=== PATIENT | female | born 1960 ===

== ENCOUNTER 2020-06-10 15:06 | Inpatient (IN) | payer OTHER ==
[~2020-06-10] VITALS: Ht 157.5 cm; Wt 80.8 kg
[2020-06-10] MEDS ORDERED: LIDOCAINE PATCH TD (15:57)
[2020-06-10] MEDS ORDERED: METF-960 PO (15:57)
[2020-06-10] MEDS ORDERED: INSU100V42 SQ (15:57)
[2020-06-10] MEDS ORDERED: AMLO-257 PO (15:57)
[2020-06-10] MEDS ORDERED: BISA-151 PO (15:57)
[2020-06-10] MEDS ORDERED: PRAM0.258 PO (15:57)
[2020-06-10] MEDS ORDERED: CYCL10 PO (15:57)
[2020-06-10] MEDS ORDERED: CHOL200016 PO (15:57)
[2020-06-10] MEDS ORDERED: DOCU-350 PO (15:57)
[2020-06-10] MEDS ORDERED: EPOE4000 SQ (15:57)
[2020-06-10] MEDS ORDERED: ATOR40TA28 PO (15:57)
[2020-06-10] MEDS ORDERED: ALLO-45 PO (15:57)
[2020-06-10] MEDS ORDERED: LOSA50TA37 PO (15:57)
[2020-06-10] MEDS ORDERED: OXYC5 PO (15:57)
[2020-06-10] MEDS ORDERED: CARV25 PO (15:57)
[2020-06-10] MEDS ORDERED: CLOP-31 PO (15:57)
[2020-06-10] MEDS ORDERED: ESCI20TA87 PO (15:57)
[2020-06-10] MEDS ORDERED: LORA-999 PO (15:57)
[2020-06-10] MEDS ORDERED: FERR-89 PO (15:57)
[2020-06-10] MEDS ORDERED: BISA10SU61 PR (15:57)
[2020-06-10] MEDS ORDERED: ASPI-728 PO (15:57)
[2020-06-10] MEDS ORDERED: PANT-31 PO (15:57)
[2020-06-10] MEDS ORDERED: IPRA3AMP24 IH (15:57)
[2020-06-10] MEDS ORDERED: EMPA10TA PO (15:57)
[2020-06-10] MEDS ORDERED: 0.9% SODIUM CHLORIDE 10 ML SYRINGE IVP PRN (16:00)
[2020-06-10] MEDS ORDERED: LIDO700A15 TD (16:01)
[2020-06-10 16:11] LABS: BASOPHILS % (AUTO) 0.6 % (0.0-2.0); EOSINOPHILS % (AUTO) 0.3 % (1.0-6.0); HEMATOCRIT 23.9 % (41-53); HEMOGLOBIN 7.5 g/dL (13.5-17.5); LYMPHOCYTES # (AUTO) 0.8 K/uL (1.0-4.8); LYMPHOCYTES % (AUTO) 7.7 % (22.0-44.0); MEAN CORPUSCULAR HEMOGLOBIN 25.6 pg (26.0-34.0); MEAN CORPUSCULAR HGB CONC 31.5 G/dL (31.0-37.0); MEAN CORPUSCULAR VOLUME 81 fL (80-100); MONOCYTES # (AUTO) 0.9 K/uL (0.1-1.0); MONOCYTES % (AUTO) 9.1 % (2.0-9.0); NEUTROPHILS # (AUTO) 8.2 K/uL (1.8-7.7); NEUTROPHILS % (AUTO) 82.3 % (40.0-70.0); PLATELET COUNT (AUTO) 430 K/uL (150-450); RED BLOOD CELL COUNT(AUTO) 2.95 MIL/uL (4.50-5.90); RED CELL DISTRIBUTION WIDTH 18.8 % (11.5-14.5)
[2020-06-10 16:22] LABS: CALCIUM, TOTAL 8.7 mg/dL (8.8-10.5); CREATININE 1.21 mg/dL (0.60-1.30); POTASSIUM 4.1 mmol/L (3.5-5.1)
[2020-06-10 16:43] LABS: INR 1.3 (0.9-1.1); PROTHROMBIN TIME 13.3 SEC (9.4-11.6)
[2020-06-10 16:47] LABS: ALBUMIN 2.3 g/dL (3.4-5.0); BILIRUBIN,TOTAL 0.5 mg/dL (0.1-1.0); TOTAL PROTEIN, SERUM 6.7 g/dL (6.4-8.2)
[2020-06-10] MEDS ORDERED: OxyCODONE HCL 5 MG IR TABLET PO ONE (17:30)
[2020-06-10] MEDS ORDERED: ACETAMINOPHEN 325 MG TABLET PO PRN (18:30)
[2020-06-10] MEDS ORDERED: ONDANSETRON HCL 4 MG/2 ML VIAL IVP PRN ×2 (18:30→19:00)
[2020-06-10] MEDS ORDERED: FUROSEMIDE 40 MG/4 ML VIAL IVP ONE (18:30)
[2020-06-10] MEDS ORDERED: BISACODYL 10 MG RECTAL RECTAL SUPPOSITORY PR PRN ×2 (18:45→19:00)
[2020-06-10] MEDS ORDERED: DEXTROSE 50%-WATER 25 GM/50 ML SYRINGE IVP PRN (18:45)
[2020-06-10] MEDS ORDERED: MAGNESIUM HYDROXIDE SUSPENSION 30 ML UDCUP PO PRN (19:00)
[2020-06-10] MEDS ORDERED: ALLO-44 PO (19:21)
[2020-06-10 19:33] LABS: APPEARANCE,URINE CLOUDY (CLEAR); BILIRUBIN,URINE NEGATIVE (NEGATIVE); GLUCOSE, URINE (UA) 500 mg/dL (NEGATIVE); KETONES,URINE NEGATIVE (NEGATIVE); LEUKOCYTE ESTERASE ,URINE MODERATE (NEGATIVE); NITRATE,URINE NEGATIVE (NEGATIVE); OCCULT BLOOD,URINE NEGATIVE (NEGATIVE); PH,URINE 5.5 (5.0-8.0); PROTEIN,URINE NEGATIVE (NEGATIVE); UROBILINOGEN,URINE 0.2 mg/dL (<=1.0)
[2020-06-10 19:34] LABS: GLUCOSE,POINT OF CARE 187 MG/DL (70-110)
[2020-06-10 19:39] LABS: BACTERIA,URINE Few /HPF (None Seen); YEAST,URINE Many /HPF (None Seen)
[2020-06-10 19:40] LABS: RBC,URINE None Seen /HPF (0-2)
[2020-06-10 19:41] LABS: SQUAMOUS EPITHELIAL CELL,UR Few /LPF (None Seen)
[2020-06-10 19:59] LABS: GLUCOSE,POINT OF CARE 137 MG/DL (70-110)
[2020-06-10 20:02] LABS: GLUCOSE,POINT OF CARE 131 MG/DL (70-110)
[2020-06-10] MEDS ORDERED: -LIDODERM PATCH NOTE- MISC SCH (21:00)
[2020-06-10] MEDS: INSULIN GLARGINE,HUM.REC.ANLOG 100 UNITS/ML SQ SCH (21:00)
[2020-06-10] MEDS: -LIDODERM PATCH NOTE- MISC SCH (21:00)
[2020-06-10] MEDS: FUROSEMIDE 20 MG/2 ML VIAL IVP SCH (21:00)
[2020-06-10 22:02] VITALS: BP 144/55
[2020-06-10] MEDS: AMPICILLIN SODIUM 2 GM/NS 100 ML IV SCH (22:07)
[2020-06-10 23:21] VITALS: BP 122/77
[2020-06-10] MEDS: CYCLOBENZAPRINE HCL 10 MG TABLET PO SCH (23:51)
[2020-06-10] MEDS: LOSARTAN POTASSIUM 50 MG TABLET PO SCH (23:57)
[2020-06-10] MEDS: CARVEDILOL 25 MG TABLET PO SCH (23:57)
[2020-06-11] MEDS: OxyCODONE HCL 5 MG IR TABLET PO PRN ×2 (01:32→11:25)
[2020-06-11] MEDS: AMPICILLIN SODIUM 2 GM/NS 100 ML IV SCH ×6 (01:32→21:07)
[2020-06-11 05:49] VITALS: BP 129/62
[2020-06-11 06:28] LABS: BASOPHILS % (AUTO) 0.3 % (0.0-2.0); EOSINOPHILS % (AUTO) 0.5 % (1.0-6.0); LYMPHOCYTES % (AUTO) 11.4 % (22.0-44.0); MEAN CORPUSCULAR HEMOGLOBIN 25.7 pg (26.0-34.0); MEAN CORPUSCULAR HGB CONC 31.8 G/dL (31.0-37.0); MEAN CORPUSCULAR VOLUME 81 fL (80-100); MONOCYTES # (AUTO) 0.8 K/uL (0.1-1.0); MONOCYTES % (AUTO) 9.3 % (2.0-9.0); NEUTROPHILS # (AUTO) 6.9 K/uL (1.8-7.7); NEUTROPHILS % (AUTO) 78.5 % (40.0-70.0); PLATELET COUNT (AUTO) 385 K/uL (150-450); RED BLOOD CELL COUNT(AUTO) 2.72 MIL/uL (4.00-5.20); RED CELL DISTRIBUTION WIDTH 19.3 % (11.5-14.5)
[2020-06-11 06:52] LABS: CALCIUM, TOTAL 8.6 mg/dL (8.8-10.5); CHOL/HDL RATIO 1.8 (3.9-5.7); CREATININE 1.36 mg/dL (0.60-1.30); POTASSIUM 3.9 mmol/L (3.5-5.1); URIC ACID 4.3 mg/dL (2.6-7.2)
[2020-06-11 07:35] LABS: FREE T4 (FREE THYROXINE) 1.17 ng/dL (0.76-1.46); THYROID STIMULATING HORMONE 2.77 uIU/mL (0.36-3.74)
[2020-06-11 07:38] LABS: GLUCOMETER DEV NAME(LOC) 5S.1; GLUCOSE,POINT OF CARE 121 MG/DL (70-110)
[2020-06-11 07:40] VITALS: BP 132/51
[2020-06-11 08:38] LABS: HEMOGLOBIN A1C 6.4 % (3.8-5.6)
[2020-06-11] MEDS ORDERED: EMPAGLIFLOZIN 10 MG PO SCH (09:00)
[2020-06-11] MEDS: LOSARTAN POTASSIUM 50 MG TABLET PO SCH ×2 (09:31→21:00)
[2020-06-11] MEDS: ALLOPURINOL 100 MG TABLET PO SCH (09:32)
[2020-06-11] MEDS: DOCUSATE SODIUM 250 MG CAPSULE PO SCH (09:32)
[2020-06-11] MEDS: FUROSEMIDE 20 MG/2 ML VIAL IVP SCH ×2 (09:32→21:00)
[2020-06-11] MEDS: FERROUS SULFATE 325 MG EC TABLET PO SCH (09:33)
[2020-06-11] MEDS: CHOLECALCIFEROL (VIT D3) 2,000 UNITS [50 MCG] TABLET PO SCH (09:33)
[2020-06-11] MEDS: ASPIRIN 81 MG CHEWABLE TABLET PO SCH (09:33)
[2020-06-11] MEDS: CARVEDILOL 25 MG TABLET PO SCH ×2 (09:33→21:00)
[2020-06-11] MEDS: MetFORMIN HCL 500 MG TABLET PO SCH ×2 (09:33→17:19)
[2020-06-11] MEDS: ATORVASTATIN CALCIUM 40 MG TABLET PO SCH (09:34)
[2020-06-11] MEDS: PANTOPRAZOLE SODIUM 40 MG DR TABLET PO SCH (09:34)
[2020-06-11] MEDS: AmLODIPine BESYLATE 5 MG TABLET PO SCH (09:34)
[2020-06-11] MEDS: CLOPIDOGREL BISULFATE 75 MG TABLET PO SCH (09:34)
[2020-06-11] MEDS: LIDOCAINE 5% TRANSDERMAL PATCH TD SCH (09:42)
[2020-06-11] MEDS: CYCLOBENZAPRINE HCL 10 MG TABLET PO SCH ×3 (09:43→23:22)
[2020-06-11] MEDS: PRAMIPEXOLE DI-HCL 0.25 MG TABLET PO SCH (09:43)
[2020-06-11] MEDS: ESCITALOPRAM OXALATE 20 MG TABLET PO SCH (09:47)
[2020-06-11 10:47] VITALS: BP 145/71
[2020-06-11] MEDS: EPOETIN ALFA 10,000 UNITS/ML VIAL SQ SCH (12:08)
[2020-06-11 12:50] LABS: GLUCOMETER DEV NAME(LOC) 5S.1; GLUCOSE,POINT OF CARE 104 MG/DL (70-110)
[2020-06-11 16:03] VITALS: BP 124/62
[2020-06-11 19:20] VITALS: BP 157/87
[2020-06-11] MEDS: -LIDODERM PATCH NOTE- MISC SCH (21:00)
[2020-06-11] MEDS: INSULIN GLARGINE,HUM.REC.ANLOG 100 UNITS/ML SQ SCH (21:00)
[2020-06-12 01:10] VITALS: BP 156/69
[2020-06-12] MEDS: AMPICILLIN SODIUM 2 GM/NS 100 ML IV SCH ×6 (01:39→21:08)
[2020-06-12 01:46] LABS: GLUCOMETER DEV NAME(LOC) 5S.1; GLUCOSE,POINT OF CARE 116 MG/DL (70-110)
[2020-06-12 01:46] LABS: GLUCOMETER DEV NAME(LOC) 5N.1; GLUCOSE,POINT OF CARE 92 MG/DL (70-110)
[2020-06-12] MEDS: OxyCODONE HCL 5 MG IR TABLET PO PRN ×3 (03:15→20:46)
[2020-06-12 04:18] VITALS: BP 140/63
[2020-06-12 06:01] LABS: BASOPHILS % (AUTO) 0.8 % (0.0-2.0); EOSINOPHILS % (AUTO) 0.5 % (1.0-6.0); HEMATOCRIT 22.8 % (36-46); HEMOGLOBIN 7.4 g/dL (12.0-16.0); LYMPHOCYTES # (AUTO) 1.2 K/uL (1.0-4.8); MEAN CORPUSCULAR HEMOGLOBIN 26.2 pg (26.0-34.0); MEAN CORPUSCULAR HGB CONC 32.3 G/dL (31.0-37.0); MEAN CORPUSCULAR VOLUME 81 fL (80-100); MONOCYTES # (AUTO) 0.8 K/uL (0.1-1.0); MONOCYTES % (AUTO) 10.3 % (2.0-9.0); NEUTROPHILS # (AUTO) 5.9 K/uL (1.8-7.7); NEUTROPHILS % (AUTO) 73.4 % (40.0-70.0); PLATELET COUNT (AUTO) 392 K/uL (150-450); RED BLOOD CELL COUNT(AUTO) 2.81 MIL/uL (4.00-5.20); RED CELL DISTRIBUTION WIDTH 19.1 % (11.5-14.5)
[2020-06-12 07:02] LABS: CALCIUM, TOTAL 8.5 mg/dL (8.8-10.5); CREATININE 1.26 mg/dL (0.60-1.30); POTASSIUM 3.2 mmol/L (3.5-5.1)
[2020-06-12 07:45] VITALS: BP 147/60
[2020-06-12 07:58] LABS: GLUCOMETER DEV NAME(LOC) 5N.1; GLUCOSE,POINT OF CARE 92 MG/DL (70-110)
[2020-06-12] MEDS: CARVEDILOL 25 MG TABLET PO SCH ×2 (08:55→20:46)
[2020-06-12] MEDS: LOSARTAN POTASSIUM 50 MG TABLET PO SCH ×2 (08:55→20:47)
[2020-06-12] MEDS: CYCLOBENZAPRINE HCL 10 MG TABLET PO SCH ×3 (08:55→23:58)
[2020-06-12] MEDS: PRAMIPEXOLE DI-HCL 0.25 MG TABLET PO SCH (08:55)
[2020-06-12] MEDS: ASPIRIN 81 MG CHEWABLE TABLET PO SCH (08:55)
[2020-06-12] MEDS: ATORVASTATIN CALCIUM 40 MG TABLET PO SCH (08:56)
[2020-06-12] MEDS: CLOPIDOGREL BISULFATE 75 MG TABLET PO SCH (08:56)
[2020-06-12] MEDS: ALLOPURINOL 100 MG TABLET PO SCH (08:56)
[2020-06-12] MEDS: MetFORMIN HCL 500 MG TABLET PO SCH ×2 (08:56→18:18)
[2020-06-12] MEDS: AmLODIPine BESYLATE 5 MG TABLET PO SCH (08:56)
[2020-06-12] MEDS: PANTOPRAZOLE SODIUM 40 MG DR TABLET PO SCH (08:56)
[2020-06-12] MEDS: DOCUSATE SODIUM 250 MG CAPSULE PO SCH (08:56)
[2020-06-12] MEDS: CHOLECALCIFEROL (VIT D3) 2,000 UNITS [50 MCG] TABLET PO SCH (08:56)
[2020-06-12] MEDS: FUROSEMIDE 20 MG/2 ML VIAL IVP SCH ×2 (08:57→20:45)
[2020-06-12] MEDS: LIDOCAINE 5% TRANSDERMAL PATCH TD SCH (08:57)
[2020-06-12] MEDS: FERROUS SULFATE 325 MG EC TABLET PO SCH (09:02)
[2020-06-12] MEDS: ESCITALOPRAM OXALATE 20 MG TABLET PO SCH (09:03)
[2020-06-12] MEDS ORDERED: CloNIDine HCL 0.1 MG TABLET PO PRN (09:15)
[2020-06-12] MEDS ORDERED: POTASSIUM CHLORIDE 20 MEQ ER TABLET PO ONE (09:30)
[2020-06-12 11:50] VITALS: BP 140/74
[2020-06-12 16:00] VITALS: BP 111/49
[2020-06-12 19:33] VITALS: BP 125/67
[2020-06-12] MEDS: -LIDODERM PATCH NOTE- MISC SCH (20:47)
[2020-06-12] MEDS: INSULIN GLARGINE,HUM.REC.ANLOG 100 UNITS/ML SQ SCH (21:00)
[2020-06-12 22:08] LABS: GLUCOMETER DEV NAME(LOC) 5S.2A; GLUCOSE,POINT OF CARE 132 MG/DL (70-110)
[2020-06-13 00:51] VITALS: BP 128/54
[2020-06-13] MEDS: AMPICILLIN SODIUM 2 GM/NS 100 ML IV SCH ×6 (02:13→21:36)
[2020-06-13] MEDS: OxyCODONE HCL 5 MG IR TABLET PO PRN (03:44)
[2020-06-13 04:30] VITALS: BP 138/64
[2020-06-13 06:26] LABS: CALCIUM, TOTAL 8.2 mg/dL (8.8-10.5); CREATININE 1.29 mg/dL (0.60-1.30); POTASSIUM 3.4 mmol/L (3.5-5.1)
[2020-06-13 06:27] LABS: BASOPHILS % (AUTO) 0.4 % (0.0-2.0); EOSINOPHILS % (AUTO) 0.9 % (1.0-6.0); HEMOGLOBIN 7.5 g/dL (12.0-16.0); LYMPHOCYTES # (AUTO) 1.1 K/uL (1.0-4.8); LYMPHOCYTES % (AUTO) 11.2 % (22.0-44.0); MEAN CORPUSCULAR HEMOGLOBIN 26.6 pg (26.0-34.0); MEAN CORPUSCULAR HGB CONC 32.8 G/dL (31.0-37.0); MEAN CORPUSCULAR VOLUME 81 fL (80-100); MONOCYTES # (AUTO) 0.9 K/uL (0.1-1.0); MONOCYTES % (AUTO) 9.8 % (2.0-9.0); NEUTROPHILS # (AUTO) 7.5 K/uL (1.8-7.7); NEUTROPHILS % (AUTO) 77.7 % (40.0-70.0); PLATELET COUNT (AUTO) 376 K/uL (150-450); RED BLOOD CELL COUNT(AUTO) 2.83 MIL/uL (4.00-5.20); RED CELL DISTRIBUTION WIDTH 19.6 % (11.5-14.5)
[2020-06-13 07:34] VITALS: BP 145/58
[2020-06-13 08:41] LABS: GLUCOMETER DEV NAME(LOC) 5N.3; GLUCOSE,POINT OF CARE 112 MG/DL (70-110)
[2020-06-13] MEDS: CYCLOBENZAPRINE HCL 10 MG TABLET PO SCH ×2 (08:43→15:23)
[2020-06-13] MEDS: FERROUS SULFATE 325 MG EC TABLET PO SCH (08:43)
[2020-06-13] MEDS: DOCUSATE SODIUM 250 MG CAPSULE PO SCH (08:44)
[2020-06-13] MEDS: MetFORMIN HCL 500 MG TABLET PO SCH ×2 (08:44→17:49)
[2020-06-13] MEDS: ASPIRIN 81 MG CHEWABLE TABLET PO SCH (08:44)
[2020-06-13] MEDS: FUROSEMIDE 20 MG/2 ML VIAL IVP SCH ×2 (08:44→21:36)
[2020-06-13] MEDS: LOSARTAN POTASSIUM 50 MG TABLET PO SCH ×2 (08:45→21:36)
[2020-06-13] MEDS: CARVEDILOL 25 MG TABLET PO SCH ×2 (08:45→21:36)
[2020-06-13] MEDS: CLOPIDOGREL BISULFATE 75 MG TABLET PO SCH (08:46)
[2020-06-13] MEDS: ATORVASTATIN CALCIUM 40 MG TABLET PO SCH (08:46)
[2020-06-13] MEDS: ESCITALOPRAM OXALATE 20 MG TABLET PO SCH (08:46)
[2020-06-13] MEDS: POTASSIUM CHLORIDE 20 MEQ ER TABLET PO SCH (08:46)
[2020-06-13] MEDS: AmLODIPine BESYLATE 10 MG TABLET PO SCH (08:46)
[2020-06-13] MEDS: PRAMIPEXOLE DI-HCL 0.25 MG TABLET PO SCH (08:46)
[2020-06-13] MEDS: LIDOCAINE 5% TRANSDERMAL PATCH TD SCH (08:47)
[2020-06-13] MEDS: EPOETIN ALFA 10,000 UNITS/ML VIAL SQ SCH (08:47)
[2020-06-13] MEDS: CHOLECALCIFEROL (VIT D3) 2,000 UNITS [50 MCG] TABLET PO SCH (08:47)
[2020-06-13] MEDS: PANTOPRAZOLE SODIUM 40 MG DR TABLET PO SCH (08:47)
[2020-06-13] MEDS: ALLOPURINOL 100 MG TABLET PO SCH (08:47)
[2020-06-13 11:15] VITALS: BP 125/52
[2020-06-13 11:59] LABS: GLUCOMETER DEV NAME(LOC) 5S.2A; GLUCOSE,POINT OF CARE 130 MG/DL (70-110)
[2020-06-13] MEDS: INSULIN LISPRO 100 UNITS/ML SQ PRN ×2 (12:26→21:38)
[2020-06-13 12:47] LABS: GLUCOMETER DEV NAME(LOC) 5N.1; GLUCOSE,POINT OF CARE 124 MG/DL (70-110)
[2020-06-13 13:33] LABS: GLUCOMETER DEV NAME(LOC) 5N.3; GLUCOSE,POINT OF CARE 172 MG/DL (70-110)
[2020-06-13] MEDS ORDERED: BusPIRone HCL 5 MG TABLET PO SCH (14:45)
[2020-06-13] MEDS: BusPIRone HCL 5 MG TABLET PO SCH (14:45)
[2020-06-13] MEDS ORDERED: SODIUM CHLORIDE 0.9% 250 ML IV ONE (15:31)
[2020-06-13 15:38] VITALS: BP 107/57
[2020-06-13 20:10] VITALS: BP 126/57
[2020-06-13] MEDS: -LIDODERM PATCH NOTE- MISC SCH (21:37)
[2020-06-13] MEDS: INSULIN GLARGINE,HUM.REC.ANLOG 100 UNITS/ML SQ SCH (21:38)
[2020-06-14] MEDS: CYCLOBENZAPRINE HCL 10 MG TABLET PO SCH ×4 (00:15→23:41)
[2020-06-14] MEDS: BusPIRone HCL 5 MG TABLET PO SCH ×3 (00:16→20:35)
[2020-06-14 00:20] VITALS: BP 125/55
[2020-06-14] MEDS: AMPICILLIN SODIUM 2 GM/NS 100 ML IV SCH ×6 (02:10→22:16)
[2020-06-14] MEDS: LORazepam 0.5 MG TABLET PO PRN ×3 (02:20→18:04)
[2020-06-14 03:55] VITALS: BP 104/54
[2020-06-14 08:00] VITALS: BP 137/72
[2020-06-14] MEDS: POTASSIUM CHLORIDE 20 MEQ ER TABLET PO SCH (09:31)
[2020-06-14] MEDS: PANTOPRAZOLE SODIUM 40 MG DR TABLET PO SCH (09:32)
[2020-06-14] MEDS: MetFORMIN HCL 500 MG TABLET PO SCH ×2 (09:32→18:03)
[2020-06-14] MEDS: CLOPIDOGREL BISULFATE 75 MG TABLET PO SCH (09:32)
[2020-06-14] MEDS: LEVOFLOXACIN 500 MG TABLET PO SCH (09:32)
[2020-06-14] MEDS: ATORVASTATIN CALCIUM 40 MG TABLET PO SCH (09:32)
[2020-06-14] MEDS: DOCUSATE SODIUM 250 MG CAPSULE PO SCH (09:32)
[2020-06-14] MEDS: ASPIRIN 81 MG CHEWABLE TABLET PO SCH (09:32)
[2020-06-14] MEDS: AmLODIPine BESYLATE 10 MG TABLET PO SCH (09:32)
[2020-06-14] MEDS: FERROUS SULFATE 325 MG EC TABLET PO SCH (09:32)
[2020-06-14] MEDS: LOSARTAN POTASSIUM 50 MG TABLET PO SCH ×2 (09:32→20:35)
[2020-06-14] MEDS: CHOLECALCIFEROL (VIT D3) 2,000 UNITS [50 MCG] TABLET PO SCH (09:33)
[2020-06-14] MEDS: CARVEDILOL 25 MG TABLET PO SCH ×2 (09:33→20:35)
[2020-06-14] MEDS: LIDOCAINE 5% TRANSDERMAL PATCH TD SCH (09:33)
[2020-06-14] MEDS: ALLOPURINOL 100 MG TABLET PO SCH (09:33)
[2020-06-14] MEDS: FUROSEMIDE 20 MG/2 ML VIAL IVP SCH ×2 (09:34→20:35)
[2020-06-14] MEDS: PRAMIPEXOLE DI-HCL 0.25 MG TABLET PO SCH (09:35)
[2020-06-14] MEDS: ESCITALOPRAM OXALATE 20 MG TABLET PO SCH (09:35)
[2020-06-14 11:15] VITALS: BP 139/67
[2020-06-14 12:59] LABS: GLUCOMETER DEV NAME(LOC) 5S.2A; GLUCOSE,POINT OF CARE 115 MG/DL (70-110)
[2020-06-14 17:05] VITALS: BP 136/69
[2020-06-14 18:06] LABS: GLUCOMETER DEV NAME(LOC) 5N.3; GLUCOSE,POINT OF CARE 158 MG/DL (70-110)
[2020-06-14 18:06] LABS: GLUCOMETER DEV NAME(LOC) 5N.3; GLUCOSE,POINT OF CARE 133 MG/DL (70-110)
[2020-06-14 18:06] LABS: GLUCOMETER DEV NAME(LOC) 5N.3; GLUCOSE,POINT OF CARE 149 MG/DL (70-110)
[2020-06-14 18:06] LABS: GLUCOMETER DEV NAME(LOC) 5N.3; GLUCOSE,POINT OF CARE 124 MG/DL (70-110)
[2020-06-14] MEDS: INSULIN LISPRO 100 UNITS/ML SQ PRN (18:10)
[2020-06-14 19:31] VITALS: BP 119/64
[2020-06-14] MEDS: INSULIN GLARGINE,HUM.REC.ANLOG 100 UNITS/ML SQ SCH (20:57)
[2020-06-14] MEDS: -LIDODERM PATCH NOTE- MISC SCH (21:02)
[2020-06-15 00:01] VITALS: BP 116/61
[2020-06-15 00:08] LABS: GLUCOMETER DEV NAME(LOC) 5S.2A; GLUCOSE,POINT OF CARE 159 MG/DL (70-110)
[2020-06-15 00:09] LABS: GLUCOMETER DEV NAME(LOC) 5N.3; GLUCOSE,POINT OF CARE 119 MG/DL (70-110)
[2020-06-15] MEDS: AMPICILLIN SODIUM 2 GM/NS 100 ML IV SCH ×6 (03:15→22:19)
[2020-06-15 04:29] VITALS: BP 141/69
[2020-06-15] MEDS: INSULIN LISPRO 100 UNITS/ML SQ PRN ×2 (06:05→11:56)
[2020-06-15 06:20] LABS: GLUCOMETER DEV NAME(LOC) 5N.3; GLUCOSE,POINT OF CARE 157 MG/DL (70-110)
[2020-06-15 08:31] VITALS: BP 147/75
[2020-06-15] MEDS ORDERED: IPRATROPIUM BROMIDE 0.5 MG/2.5 ML NEB SOLUTION NEB ONE (08:42)
[2020-06-15] MEDS ORDERED: ALBUTEROL SULFATE 2.5 MG/0.5 ML NEB SOLUTION NEB ONE (08:42)
[2020-06-15] MEDS: FERROUS SULFATE 325 MG EC TABLET PO SCH (09:31)
[2020-06-15] MEDS: CYCLOBENZAPRINE HCL 10 MG TABLET PO SCH ×2 (09:32→15:59)
[2020-06-15] MEDS: MetFORMIN HCL 500 MG TABLET PO SCH ×2 (09:32→18:19)
[2020-06-15] MEDS: FUROSEMIDE 20 MG/2 ML VIAL IVP SCH (09:33)
[2020-06-15] MEDS: ASPIRIN 81 MG CHEWABLE TABLET PO SCH (09:33)
[2020-06-15] MEDS: CLOPIDOGREL BISULFATE 75 MG TABLET PO SCH (09:34)
[2020-06-15] MEDS: AmLODIPine BESYLATE 10 MG TABLET PO SCH (09:34)
[2020-06-15] MEDS: LOSARTAN POTASSIUM 50 MG TABLET PO SCH ×2 (09:34→20:57)
[2020-06-15] MEDS: ATORVASTATIN CALCIUM 40 MG TABLET PO SCH (09:38)
[2020-06-15] MEDS: ESCITALOPRAM OXALATE 20 MG TABLET PO SCH (09:38)
[2020-06-15] MEDS: ALLOPURINOL 100 MG TABLET PO SCH (09:38)
[2020-06-15] MEDS: CARVEDILOL 25 MG TABLET PO SCH ×2 (09:38→20:57)
[2020-06-15] MEDS: LEVOFLOXACIN 500 MG TABLET PO SCH (09:38)
[2020-06-15] MEDS: BusPIRone HCL 5 MG TABLET PO SCH ×2 (09:38→20:56)
[2020-06-15] MEDS: PRAMIPEXOLE DI-HCL 0.25 MG TABLET PO SCH (09:42)
[2020-06-15] MEDS: POTASSIUM CHLORIDE 20 MEQ ER TABLET PO SCH (09:42)
[2020-06-15] MEDS: CHOLECALCIFEROL (VIT D3) 2,000 UNITS [50 MCG] TABLET PO SCH (09:43)
[2020-06-15] MEDS: DOCUSATE SODIUM 250 MG CAPSULE PO SCH (09:43)
[2020-06-15] MEDS: PANTOPRAZOLE SODIUM 40 MG DR TABLET PO SCH (09:43)
[2020-06-15] MEDS: EPOETIN ALFA 10,000 UNITS/ML VIAL SQ SCH (09:44)
[2020-06-15] MEDS: LIDOCAINE 5% TRANSDERMAL PATCH TD SCH (09:45)
[2020-06-15 10:50] VITALS: BP 124/77
[2020-06-15] MEDS: IPRATROPIUM BROMIDE 0.5 MG/2.5 ML NEB SOLUTION NEB PRN ×2 (10:50→20:22)
[2020-06-15] MEDS ORDERED: ALBUTEROL SULFATE 2.5 MG/0.5 ML NEB SOLUTION NEB SCH ×2 (11:00)
[2020-06-15] MEDS ORDERED: IPRATROPIUM BROMIDE 0.5 MG/2.5 ML NEB SOLUTION NEB SCH (11:00)
[2020-06-15] MEDS ORDERED: FUROSEMIDE 40 MG/4 ML VIAL IVP ONE (11:15)
[2020-06-15] MEDS: FUROSEMIDE 40 MG/4 ML VIAL IVP SCH ×2 (12:21→20:56)
[2020-06-15] MEDS: OxyCODONE HCL 5 MG IR TABLET PO PRN (12:27)
[2020-06-15 15:17] VITALS: BP 129/69
[2020-06-15 20:14] VITALS: BP 147/73
[2020-06-15] MEDS: ALBUTEROL SULFATE 2.5 MG/0.5 ML NEB SOLUTION NEB PRN (20:22)
[2020-06-15 20:37] LABS: GLUCOMETER DEV NAME(LOC) 5N.3; GLUCOSE,POINT OF CARE 113 MG/DL (70-110)
[2020-06-15] MEDS: INSULIN GLARGINE,HUM.REC.ANLOG 100 UNITS/ML SQ SCH (20:58)
[2020-06-15] MEDS: -LIDODERM PATCH NOTE- MISC SCH (21:16)
[2020-06-16] VITALS (7 sets, daily range): BP systolic 120–145; BP diastolic 66–77
[2020-06-16] MEDS: CYCLOBENZAPRINE HCL 10 MG TABLET PO SCH ×3 (00:31→15:05)
[2020-06-16] MEDS: AMPICILLIN SODIUM 2 GM/NS 100 ML IV SCH ×6 (02:25→22:50)
[2020-06-16] MEDS ORDERED: SODIUM CHLORIDE 0.9% 250 ML IV ONE (05:48)
[2020-06-16] MEDS: CLOPIDOGREL BISULFATE 75 MG TABLET PO SCH (09:04)
[2020-06-16] MEDS: LOSARTAN POTASSIUM 50 MG TABLET PO SCH ×2 (09:04→20:39)
[2020-06-16] MEDS: ATORVASTATIN CALCIUM 40 MG TABLET PO SCH (09:04)
[2020-06-16] MEDS: DOCUSATE SODIUM 250 MG CAPSULE PO SCH (09:04)
[2020-06-16] MEDS: AmLODIPine BESYLATE 10 MG TABLET PO SCH (09:04)
[2020-06-16] MEDS: PANTOPRAZOLE SODIUM 40 MG DR TABLET PO SCH (09:04)
[2020-06-16] MEDS: FERROUS SULFATE 325 MG EC TABLET PO SCH (09:04)
[2020-06-16] MEDS: POTASSIUM CHLORIDE 20 MEQ ER TABLET PO SCH (09:04)
[2020-06-16] MEDS: MetFORMIN HCL 500 MG TABLET PO SCH ×2 (09:05→18:28)
[2020-06-16] MEDS: ASPIRIN 81 MG CHEWABLE TABLET PO SCH (09:05)
[2020-06-16] MEDS: PRAMIPEXOLE DI-HCL 0.25 MG TABLET PO SCH (09:06)
[2020-06-16] MEDS: BusPIRone HCL 5 MG TABLET PO SCH ×2 (09:08→20:39)
[2020-06-16] MEDS: CARVEDILOL 25 MG TABLET PO SCH ×2 (09:08→20:39)
[2020-06-16] MEDS: ESCITALOPRAM OXALATE 20 MG TABLET PO SCH (09:09)
[2020-06-16] MEDS: CHOLECALCIFEROL (VIT D3) 2,000 UNITS [50 MCG] TABLET PO SCH (09:10)
[2020-06-16] MEDS: ALLOPURINOL 100 MG TABLET PO SCH (09:11)
[2020-06-16] MEDS: LIDOCAINE 5% TRANSDERMAL PATCH TD SCH (09:11)
[2020-06-16] MEDS: FUROSEMIDE 40 MG/4 ML VIAL IVP SCH ×2 (09:13→20:37)
[2020-06-16] MEDS: LEVOFLOXACIN 500 MG TABLET PO SCH (09:15)
[2020-06-16] MEDS: BACLOFEN 10 MG TABLET PO PRN (11:15)
[2020-06-16] MEDS: INSULIN LISPRO 100 UNITS/ML SQ PRN (11:17)
[2020-06-16 12:01] LABS: GLUCOMETER DEV NAME(LOC) 5S.2A; GLUCOSE,POINT OF CARE 143 MG/DL (70-110)
[2020-06-16 12:01] LABS: GLUCOMETER DEV NAME(LOC) 5S.2A; GLUCOSE,POINT OF CARE 134 MG/DL (70-110)
[2020-06-16 12:01] LABS: GLUCOMETER DEV NAME(LOC) 5S.2A; GLUCOSE,POINT OF CARE 155 MG/DL (70-110)
[2020-06-16] MEDS ORDERED: POTASSIUM CHLORIDE 20 MEQ ER TABLET PO ONE (18:00)
[2020-06-16] MEDS: -LIDODERM PATCH NOTE- MISC SCH (20:38)
[2020-06-16] MEDS: INSULIN GLARGINE,HUM.REC.ANLOG 100 UNITS/ML SQ SCH (20:43)
[2020-06-17] MEDS: CYCLOBENZAPRINE HCL 10 MG TABLET PO SCH ×3 (01:07→17:23)
[2020-06-17] MEDS: LORazepam 0.5 MG TABLET PO PRN (01:07)
[2020-06-17] MEDS: AMPICILLIN SODIUM 2 GM/NS 100 ML IV SCH ×6 (01:08→21:12)
[2020-06-17 04:37] VITALS: BP 143/65
[2020-06-17 05:57] LABS: GLUCOMETER DEV NAME(LOC) 5N.3; GLUCOSE,POINT OF CARE 124 MG/DL (70-110)
[2020-06-17 05:57] LABS: GLUCOMETER DEV NAME(LOC) 5N.3; GLUCOSE,POINT OF CARE 105 MG/DL (70-110)
[2020-06-17 05:57] LABS: GLUCOMETER DEV NAME(LOC) 5N.3; GLUCOSE,POINT OF CARE 135 MG/DL (70-110)
[2020-06-17 06:56] LABS: BASOPHILS % (AUTO) 0.8 % (0.0-2.0); EOSINOPHILS % (AUTO) 1.4 % (1.0-6.0); HEMOGLOBIN 8.1 g/dL (12.0-16.0); LYMPHOCYTES # (AUTO) 0.6 K/uL (1.0-4.8); LYMPHOCYTES % (AUTO) 6.4 % (22.0-44.0); MEAN CORPUSCULAR HEMOGLOBIN 26.2 pg (26.0-34.0); MEAN CORPUSCULAR HGB CONC 32.4 G/dL (31.0-37.0); MEAN CORPUSCULAR VOLUME 81 fL (80-100); MONOCYTES % (AUTO) 9.8 % (2.0-9.0); NEUTROPHILS # (AUTO) 8.3 K/uL (1.8-7.7); NEUTROPHILS % (AUTO) 81.6 % (40.0-70.0); PLATELET COUNT (AUTO) 404 K/uL (150-450); RED BLOOD CELL COUNT(AUTO) 3.09 MIL/uL (4.00-5.20); RED CELL DISTRIBUTION WIDTH 20.6 % (11.5-14.5)
[2020-06-17 07:03] LABS: CALCIUM, TOTAL 8.7 mg/dL (8.8-10.5); CREATININE 1.31 mg/dL (0.60-1.30); POTASSIUM 3.6 mmol/L (3.5-5.1)
[2020-06-17 07:52] VITALS: BP 139/70
[2020-06-17 08:08] LABS: GLUCOMETER DEV NAME(LOC) 5S.2A; GLUCOSE,POINT OF CARE 112 MG/DL (70-110)
[2020-06-17] MEDS: LEVOFLOXACIN 500 MG TABLET PO SCH (08:35)
[2020-06-17] MEDS: FERROUS SULFATE 325 MG EC TABLET PO SCH (08:35)
[2020-06-17] MEDS: ASPIRIN 81 MG CHEWABLE TABLET PO SCH (08:35)
[2020-06-17] MEDS: ATORVASTATIN CALCIUM 40 MG TABLET PO SCH (08:35)
[2020-06-17] MEDS: MetFORMIN HCL 500 MG TABLET PO SCH ×2 (08:35→17:23)
[2020-06-17] MEDS: CLOPIDOGREL BISULFATE 75 MG TABLET PO SCH (08:36)
[2020-06-17] MEDS: LOSARTAN POTASSIUM 50 MG TABLET PO SCH ×2 (08:36→21:06)
[2020-06-17] MEDS: PANTOPRAZOLE SODIUM 40 MG DR TABLET PO SCH (08:36)
[2020-06-17] MEDS: POTASSIUM CHLORIDE 20 MEQ ER TABLET PO SCH (08:36)
[2020-06-17] MEDS: FUROSEMIDE 40 MG/4 ML VIAL IVP SCH ×2 (08:36→21:06)
[2020-06-17] MEDS: PRAMIPEXOLE DI-HCL 0.25 MG TABLET PO SCH (08:36)
[2020-06-17] MEDS: LIDOCAINE 5% TRANSDERMAL PATCH TD SCH (08:37)
[2020-06-17] MEDS: ESCITALOPRAM OXALATE 20 MG TABLET PO SCH (08:37)
[2020-06-17] MEDS: ALLOPURINOL 100 MG TABLET PO SCH (08:37)
[2020-06-17] MEDS: DOCUSATE SODIUM 250 MG CAPSULE PO SCH (08:37)
[2020-06-17] MEDS: CHOLECALCIFEROL (VIT D3) 2,000 UNITS [50 MCG] TABLET PO SCH (08:37)
[2020-06-17] MEDS: BusPIRone HCL 5 MG TABLET PO SCH ×2 (08:37→21:06)
[2020-06-17] MEDS: CARVEDILOL 25 MG TABLET PO SCH ×2 (11:12→21:06)
[2020-06-17] MEDS: EPOETIN ALFA 10,000 UNITS/ML VIAL SQ SCH (11:12)
[2020-06-17] MEDS: AmLODIPine BESYLATE 10 MG TABLET PO SCH (11:12)
[2020-06-17] MEDS ORDERED: CefTRIAXone 1 GM/DEXTROSE 50 ML IV SCH (13:00)
[2020-06-17 15:05] VITALS: BP 145/53
[2020-06-17 20:01] VITALS: BP 139/58
[2020-06-17 20:24] LABS: GLUCOMETER DEV NAME(LOC) 5N.3; GLUCOSE,POINT OF CARE 118 MG/DL (70-110)
[2020-06-17] MEDS: INSULIN GLARGINE,HUM.REC.ANLOG 100 UNITS/ML SQ SCH (21:00)
[2020-06-17] MEDS: -LIDODERM PATCH NOTE- MISC SCH (21:06)
[2020-06-17 21:36] LABS: GLUCOMETER DEV NAME(LOC) 5S.1; GLUCOSE,POINT OF CARE 109 MG/DL (70-110)
[2020-06-17] MEDS: MICONAZOLE NITRATE 2% 142 GM CREAM [BAZA] TP SCH (21:36)
[2020-06-17 23:06] VITALS: BP 107/52
[2020-06-18] MEDS: CYCLOBENZAPRINE HCL 10 MG TABLET PO SCH ×4 (00:34→23:45)
[2020-06-18] MEDS: AMPICILLIN SODIUM 2 GM/NS 100 ML IV SCH ×6 (01:20→22:24)
[2020-06-18 04:05] VITALS: BP 108/65
[2020-06-18 06:02] LABS: BASOPHILS % (AUTO) 0.6 % (0.0-2.0); EOSINOPHILS % (AUTO) 1.8 % (1.0-6.0); HEMATOCRIT 24.3 % (36-46); HEMOGLOBIN 7.9 g/dL (12.0-16.0); LYMPHOCYTES # (AUTO) 0.7 K/uL (1.0-4.8); LYMPHOCYTES % (AUTO) 7.2 % (22.0-44.0); MEAN CORPUSCULAR HGB CONC 32.4 G/dL (31.0-37.0); MEAN CORPUSCULAR VOLUME 80 fL (80-100); MONOCYTES % (AUTO) 10.8 % (2.0-9.0); NEUTROPHILS # (AUTO) 7.6 K/uL (1.8-7.7); NEUTROPHILS % (AUTO) 79.6 % (40.0-70.0); PLATELET COUNT (AUTO) 391 K/uL (150-450); RED BLOOD CELL COUNT(AUTO) 3.03 MIL/uL (4.00-5.20); RED CELL DISTRIBUTION WIDTH 20.2 % (11.5-14.5)
[2020-06-18 07:33] VITALS: BP 140/75
[2020-06-18] MEDS: FERROUS SULFATE 325 MG EC TABLET PO SCH ×2 (08:00→12:26)
[2020-06-18] MEDS: MetFORMIN HCL 500 MG TABLET PO SCH ×2 (08:00→18:07)
[2020-06-18 08:08] LABS: GLUCOMETER DEV NAME(LOC) 5S.2A; GLUCOSE,POINT OF CARE 99 MG/DL (70-110)
[2020-06-18] MEDS: FUROSEMIDE 40 MG/4 ML VIAL IVP SCH ×2 (08:28→20:35)
[2020-06-18] MEDS: LIDOCAINE 5% TRANSDERMAL PATCH TD SCH (08:28)
[2020-06-18] MEDS ORDERED: AZITHROMYCIN 500 MG TABLET PO SCH (09:00)
[2020-06-18] MEDS: CLOPIDOGREL BISULFATE 75 MG TABLET PO SCH (09:00)
[2020-06-18] MEDS: DOCUSATE SODIUM 250 MG CAPSULE PO SCH (09:00)
[2020-06-18 11:11] VITALS: BP 123/63
[2020-06-18] MEDS: AmLODIPine BESYLATE 10 MG TABLET PO SCH (12:26)
[2020-06-18] MEDS: ASPIRIN 81 MG CHEWABLE TABLET PO SCH (12:26)
[2020-06-18] MEDS: ATORVASTATIN CALCIUM 40 MG TABLET PO SCH (12:26)
[2020-06-18] MEDS: POTASSIUM CHLORIDE 20 MEQ ER TABLET PO SCH (12:26)
[2020-06-18] MEDS: LOSARTAN POTASSIUM 50 MG TABLET PO SCH ×2 (12:26→20:35)
[2020-06-18] MEDS: CHOLECALCIFEROL (VIT D3) 2,000 UNITS [50 MCG] TABLET PO SCH (12:27)
[2020-06-18] MEDS: PANTOPRAZOLE SODIUM 40 MG DR TABLET PO SCH (12:27)
[2020-06-18] MEDS: ESCITALOPRAM OXALATE 20 MG TABLET PO SCH (12:27)
[2020-06-18] MEDS: PRAMIPEXOLE DI-HCL 0.25 MG TABLET PO SCH (12:27)
[2020-06-18] MEDS: CARVEDILOL 25 MG TABLET PO SCH ×2 (12:27→20:35)
[2020-06-18] MEDS: ALLOPURINOL 100 MG TABLET PO SCH (12:27)
[2020-06-18] MEDS: BusPIRone HCL 5 MG TABLET PO SCH ×2 (12:27→20:35)
[2020-06-18 12:28] LABS: GLUCOMETER DEV NAME(LOC) 5N.3; GLUCOSE,POINT OF CARE 136 MG/DL (70-110)
[2020-06-18] MEDS: MICONAZOLE NITRATE 2% 142 GM CREAM [BAZA] TP SCH ×2 (12:28→20:43)
[2020-06-18 12:57] LABS: SPECIMENTYPE,BODY FLUID THORACENTESIS
[2020-06-18 14:00] LABS: APPEARANCE,SPUN,BODY FLUID CLEAR (CLEAR); APPEARANCE,UNSPUN,BODY FLUID HAZY (CLEAR); COLOR,BODY FLUID YELLOW (LT YELLOW); TOTAL VOLUME,BODY FLUID 850 mL; WBC, BODY FLUID 21 /cu. mm.
[2020-06-18 14:05] LABS: BASOPHILS,BODY FLUID 0 %; EOSINOPHILS,BF (ANAL) 0 %; LYMPHOCYTES,BODY FLUID 95 %; MONOCYTES,BODY FLUID 0 %; NEUTROPHILS,BODY FLUID 5 %
[2020-06-18] MEDS: LEVOFLOXACIN 500 MG TABLET PO SCH (14:28)
[2020-06-18 15:14] VITALS: BP 129/54
[2020-06-18 16:58] LABS: GLUCOMETER DEV NAME(LOC) 5S.1; GLUCOSE,POINT OF CARE 127 MG/DL (70-110)
[2020-06-18 17:52] LABS: GLUCOMETER DEV NAME(LOC) 5N.3; GLUCOSE,POINT OF CARE 141 MG/DL (70-110)
[2020-06-18 19:21] VITALS: BP 121/62
[2020-06-18] MEDS: INSULIN GLARGINE,HUM.REC.ANLOG 100 UNITS/ML SQ SCH (20:35)
[2020-06-18] MEDS: -LIDODERM PATCH NOTE- MISC SCH (20:37)
[2020-06-18 23:06] VITALS: BP 115/56
[2020-06-19] MEDS: AMPICILLIN SODIUM 2 GM/NS 100 ML IV SCH ×6 (02:15→21:48)
[2020-06-19 03:40] VITALS: BP 128/69
[2020-06-19 06:57] LABS: BASOPHILS % (AUTO) 0.6 % (0.0-2.0); EOSINOPHILS % (AUTO) 1.1 % (1.0-6.0); HEMATOCRIT 25.7 % (36-46); HEMOGLOBIN 8.2 g/dL (12.0-16.0); LYMPHOCYTES # (AUTO) 0.6 K/uL (1.0-4.8); LYMPHOCYTES % (AUTO) 5.6 % (22.0-44.0); MEAN CORPUSCULAR HEMOGLOBIN 25.6 pg (26.0-34.0); MEAN CORPUSCULAR VOLUME 80 fL (80-100); MONOCYTES # (AUTO) 1.1 K/uL (0.1-1.0); MONOCYTES % (AUTO) 9.4 % (2.0-9.0); NEUTROPHILS # (AUTO) 9.4 K/uL (1.8-7.7); NEUTROPHILS % (AUTO) 83.3 % (40.0-70.0); PLATELET COUNT (AUTO) 410 K/uL (150-450); RED BLOOD CELL COUNT(AUTO) 3.21 MIL/uL (4.00-5.20); RED CELL DISTRIBUTION WIDTH 20.4 % (11.5-14.5)
[2020-06-19 07:11] LABS: GLUCOMETER DEV NAME(LOC) 5N.3; GLUCOSE,POINT OF CARE 152 MG/DL (70-110)
[2020-06-19 07:11] LABS: GLUCOMETER DEV NAME(LOC) 5N.3; GLUCOSE,POINT OF CARE 162 MG/DL (70-110)
[2020-06-19 07:36] VITALS: BP 135/68
[2020-06-19] MEDS: LOSARTAN POTASSIUM 50 MG TABLET PO SCH ×2 (08:20→21:38)
[2020-06-19] MEDS: FERROUS SULFATE 325 MG EC TABLET PO SCH (08:20)
[2020-06-19] MEDS: CYCLOBENZAPRINE HCL 10 MG TABLET PO SCH ×2 (08:20→15:22)
[2020-06-19] MEDS: MULTIVITAMINS WITH MINERALS, THERAPEUTIC TABLET PO SCH (08:20)
[2020-06-19] MEDS: PRAMIPEXOLE DI-HCL 0.25 MG TABLET PO SCH (08:21)
[2020-06-19] MEDS: ASPIRIN 81 MG CHEWABLE TABLET PO SCH (08:21)
[2020-06-19] MEDS: CHOLECALCIFEROL (VIT D3) 2,000 UNITS [50 MCG] TABLET PO SCH (08:21)
[2020-06-19] MEDS: ALLOPURINOL 100 MG TABLET PO SCH (08:21)
[2020-06-19] MEDS: LEVOFLOXACIN 500 MG TABLET PO SCH (08:21)
[2020-06-19] MEDS: MetFORMIN HCL 500 MG TABLET PO SCH ×2 (08:22→17:27)
[2020-06-19] MEDS: FUROSEMIDE 40 MG/4 ML VIAL IVP SCH ×2 (08:22→21:37)
[2020-06-19] MEDS: CLOPIDOGREL BISULFATE 75 MG TABLET PO SCH (08:22)
[2020-06-19] MEDS: BusPIRone HCL 5 MG TABLET PO SCH ×2 (08:22→21:38)
[2020-06-19] MEDS: ATORVASTATIN CALCIUM 40 MG TABLET PO SCH (08:22)
[2020-06-19] MEDS: ESCITALOPRAM OXALATE 20 MG TABLET PO SCH (08:22)
[2020-06-19] MEDS: POTASSIUM CHLORIDE 20 MEQ ER TABLET PO SCH (08:22)
[2020-06-19] MEDS: PANTOPRAZOLE SODIUM 40 MG DR TABLET PO SCH (08:22)
[2020-06-19] MEDS: LIDOCAINE 5% TRANSDERMAL PATCH TD SCH (08:23)
[2020-06-19] MEDS: AmLODIPine BESYLATE 10 MG TABLET PO SCH (08:23)
[2020-06-19] MEDS: EPOETIN ALFA 10,000 UNITS/ML VIAL SQ SCH (08:23)
[2020-06-19] MEDS: MICONAZOLE NITRATE 2% 142 GM CREAM [BAZA] TP SCH ×2 (08:45→21:38)
[2020-06-19] MEDS: DOCUSATE SODIUM 250 MG CAPSULE PO SCH (08:45)
[2020-06-19] MEDS: CARVEDILOL 25 MG TABLET PO SCH ×2 (09:00→21:38)
[2020-06-19] MEDS: ALBUTEROL SULFATE 2.5 MG/0.5 ML NEB SOLUTION NEB PRN (09:03)
[2020-06-19] MEDS: IPRATROPIUM BROMIDE 0.5 MG/2.5 ML NEB SOLUTION NEB PRN (09:03)
[2020-06-19 10:41] VITALS: BP 113/79
[2020-06-19] MEDS ORDERED: FLUCONAZOLE 150 MG TABLET PO ONE (11:00)
[2020-06-19 11:23] LABS: GLUCOMETER DEV NAME(LOC) 5N.3; GLUCOSE,POINT OF CARE 181 MG/DL (70-110)
[2020-06-19] MEDS: INSULIN LISPRO 100 UNITS/ML SQ PRN (12:10)
[2020-06-19] MEDS: ALBUTEROL SULFATE 2.5 MG/0.5 ML NEB SOLUTION NEB SCH (14:46)
[2020-06-19] MEDS: IPRATROPIUM BROMIDE 0.5 MG/2.5 ML NEB SOLUTION NEB SCH (14:46)
[2020-06-19 15:27] VITALS: BP 129/74
[2020-06-19 17:35] LABS: GLUCOMETER DEV NAME(LOC) 5S.2A; GLUCOSE,POINT OF CARE 147 MG/DL (70-110)
[2020-06-19] MEDS: LORazepam 0.5 MG TABLET PO PRN (18:49)
[2020-06-19 19:54] VITALS: BP 136/69
[2020-06-19] MEDS: OxyCODONE HCL 5 MG IR TABLET PO PRN (21:38)
[2020-06-19] MEDS: -LIDODERM PATCH NOTE- MISC SCH (21:38)
[2020-06-19] MEDS: INSULIN GLARGINE,HUM.REC.ANLOG 100 UNITS/ML SQ SCH (21:46)
[2020-06-19 22:04] LABS: GLUCOMETER DEV NAME(LOC) 5N.3; GLUCOSE,POINT OF CARE 132 MG/DL (70-110)
[2020-06-20 00:14] VITALS: BP 116/65
[2020-06-20] MEDS: AMPICILLIN SODIUM 2 GM/NS 100 ML IV SCH ×7 (01:25→22:06)
[2020-06-20] MEDS: CYCLOBENZAPRINE HCL 10 MG TABLET PO SCH ×4 (01:25→23:31)
[2020-06-20] MEDS: IPRATROPIUM BROMIDE 0.5 MG/2.5 ML NEB SOLUTION NEB SCH ×5 (02:00→19:39)
[2020-06-20] MEDS: ALBUTEROL SULFATE 2.5 MG/0.5 ML NEB SOLUTION NEB SCH ×5 (02:00→19:39)
[2020-06-20 04:59] VITALS: BP 131/66
[2020-06-20] MEDS: ALBUTEROL SULFATE 2.5 MG/0.5 ML NEB SOLUTION NEB PRN (04:59)
[2020-06-20] MEDS: IPRATROPIUM BROMIDE 0.5 MG/2.5 ML NEB SOLUTION NEB PRN (04:59)
[2020-06-20] MEDS: BACLOFEN 10 MG TABLET PO PRN (05:18)
[2020-06-20 07:22] VITALS: BP 140/72
[2020-06-20] MEDS: PRAMIPEXOLE DI-HCL 0.25 MG TABLET PO SCH (08:32)
[2020-06-20] MEDS: AmLODIPine BESYLATE 10 MG TABLET PO SCH (08:32)
[2020-06-20] MEDS: ALLOPURINOL 100 MG TABLET PO SCH (08:33)
[2020-06-20] MEDS: ATORVASTATIN CALCIUM 40 MG TABLET PO SCH (08:33)
[2020-06-20] MEDS: FERROUS SULFATE 325 MG EC TABLET PO SCH (08:33)
[2020-06-20] MEDS: CARVEDILOL 25 MG TABLET PO SCH ×2 (08:33→20:28)
[2020-06-20] MEDS: CHOLECALCIFEROL (VIT D3) 2,000 UNITS [50 MCG] TABLET PO SCH (08:33)
[2020-06-20] MEDS: LORazepam 0.5 MG TABLET PO PRN ×2 (08:33→23:31)
[2020-06-20] MEDS: MetFORMIN HCL 500 MG TABLET PO SCH ×2 (08:33→18:06)
[2020-06-20] MEDS: CLOPIDOGREL BISULFATE 75 MG TABLET PO SCH (08:33)
[2020-06-20] MEDS: BusPIRone HCL 5 MG TABLET PO SCH ×2 (08:33→20:28)
[2020-06-20] MEDS: MULTIVITAMINS WITH MINERALS, THERAPEUTIC TABLET PO SCH (08:34)
[2020-06-20] MEDS: POTASSIUM CHLORIDE 20 MEQ ER TABLET PO SCH (08:34)
[2020-06-20] MEDS: LEVOFLOXACIN 500 MG TABLET PO SCH (08:34)
[2020-06-20] MEDS: DOCUSATE SODIUM 250 MG CAPSULE PO SCH (08:34)
[2020-06-20] MEDS: ASPIRIN 81 MG CHEWABLE TABLET PO SCH (08:34)
[2020-06-20] MEDS: PANTOPRAZOLE SODIUM 40 MG DR TABLET PO SCH (08:34)
[2020-06-20] MEDS: FUROSEMIDE 40 MG/4 ML VIAL IVP SCH ×2 (08:35→20:27)
[2020-06-20] MEDS: LOSARTAN POTASSIUM 50 MG TABLET PO SCH ×2 (08:42→20:27)
[2020-06-20] MEDS: ESCITALOPRAM OXALATE 20 MG TABLET PO SCH (08:42)
[2020-06-20] MEDS: LIDOCAINE 5% TRANSDERMAL PATCH TD SCH (08:43)
[2020-06-20] MEDS: OxyCODONE HCL 5 MG IR TABLET PO PRN (09:47)
[2020-06-20] MEDS: MICONAZOLE NITRATE 2% 142 GM CREAM [BAZA] TP SCH ×2 (09:48→21:07)
[2020-06-20 11:18] VITALS: BP 129/91
[2020-06-20 15:20] VITALS: BP 143/63
[2020-06-20 19:41] VITALS: BP 126/78
[2020-06-20] MEDS: INSULIN GLARGINE,HUM.REC.ANLOG 100 UNITS/ML SQ SCH (20:28)
[2020-06-20 20:47] LABS: GLUCOMETER DEV NAME(LOC) 5N.3; GLUCOSE,POINT OF CARE 114 MG/DL (70-110)
[2020-06-20] MEDS: -LIDODERM PATCH NOTE- MISC SCH (21:04)
[2020-06-21 00:09] VITALS: BP 130/87
[2020-06-21] MEDS: IPRATROPIUM BROMIDE 0.5 MG/2.5 ML NEB SOLUTION NEB SCH ×4 (02:38→20:08)
[2020-06-21] MEDS: ALBUTEROL SULFATE 2.5 MG/0.5 ML NEB SOLUTION NEB SCH ×4 (02:39→20:08)
[2020-06-21] MEDS: AMPICILLIN SODIUM 2 GM/NS 100 ML IV SCH ×6 (02:39→22:35)
[2020-06-21] MEDS ORDERED: SODIUM CHLORIDE 0.9% 250 ML IV ONE (02:44)
[2020-06-21] MEDS: OxyCODONE HCL 5 MG IR TABLET PO PRN ×3 (04:04→21:09)
[2020-06-21 05:45] VITALS: BP 137/73
[2020-06-21 05:52] LABS: BASOPHILS % (AUTO) 0.8 % (0.0-2.0); EOSINOPHILS % (AUTO) 1.4 % (1.0-6.0); HEMATOCRIT 22.9 % (36-46); HEMOGLOBIN 7.3 g/dL (12.0-16.0); LYMPHOCYTES # (AUTO) 0.7 K/uL (1.0-4.8); LYMPHOCYTES % (AUTO) 7.7 % (22.0-44.0); MEAN CORPUSCULAR HEMOGLOBIN 25.7 pg (26.0-34.0); MEAN CORPUSCULAR VOLUME 80 fL (80-100); MONOCYTES % (AUTO) 11.1 % (2.0-9.0); NEUTROPHILS # (AUTO) 7.2 K/uL (1.8-7.7); PLATELET COUNT (AUTO) 324 K/uL (150-450); RED BLOOD CELL COUNT(AUTO) 2.85 MIL/uL (4.00-5.20); RED CELL DISTRIBUTION WIDTH 20.6 % (11.5-14.5)
[2020-06-21 06:04] LABS: GLUCOMETER DEV NAME(LOC) 5S.2A; GLUCOSE,POINT OF CARE 105 MG/DL (70-110)
[2020-06-21 06:04] LABS: GLUCOMETER DEV NAME(LOC) 5S.2A; GLUCOSE,POINT OF CARE 114 MG/DL (70-110)
[2020-06-21 06:04] LABS: GLUCOMETER DEV NAME(LOC) 5S.2A; GLUCOSE,POINT OF CARE 116 MG/DL (70-110)
[2020-06-21 06:04] LABS: GLUCOMETER DEV NAME(LOC) 5S.2A; GLUCOSE,POINT OF CARE 145 MG/DL (70-110)
[2020-06-21 06:32] LABS: ALBUMIN 2.4 g/dL (3.4-5.0); BILIRUBIN,TOTAL 0.5 mg/dL (0.1-1.0); CALCIUM, TOTAL 8.6 mg/dL (8.8-10.5); CREATININE 1.71 mg/dL (0.60-1.30); POTASSIUM 3.1 mmol/L (3.5-5.1); TOTAL PROTEIN, SERUM 6.6 g/dL (6.4-8.2)
[2020-06-21 08:10] VITALS: BP 136/74
[2020-06-21] MEDS: PRAMIPEXOLE DI-HCL 0.25 MG TABLET PO SCH (09:10)
[2020-06-21] MEDS: ESCITALOPRAM OXALATE 20 MG TABLET PO SCH (09:10)
[2020-06-21] MEDS: PANTOPRAZOLE SODIUM 40 MG DR TABLET PO SCH (09:11)
[2020-06-21] MEDS: ASPIRIN 81 MG CHEWABLE TABLET PO SCH (09:11)
[2020-06-21] MEDS: MULTIVITAMINS WITH MINERALS, THERAPEUTIC TABLET PO SCH (09:11)
[2020-06-21] MEDS: AmLODIPine BESYLATE 10 MG TABLET PO SCH (09:11)
[2020-06-21] MEDS: MetFORMIN HCL 500 MG TABLET PO SCH ×2 (09:11→17:35)
[2020-06-21] MEDS: LEVOFLOXACIN 500 MG TABLET PO SCH (09:11)
[2020-06-21] MEDS: FERROUS SULFATE 325 MG EC TABLET PO SCH (09:11)
[2020-06-21] MEDS: ATORVASTATIN CALCIUM 40 MG TABLET PO SCH (09:11)
[2020-06-21] MEDS: LOSARTAN POTASSIUM 50 MG TABLET PO SCH ×2 (09:11→21:09)
[2020-06-21] MEDS: CARVEDILOL 25 MG TABLET PO SCH ×2 (09:11→21:09)
[2020-06-21] MEDS: ALLOPURINOL 100 MG TABLET PO SCH (09:11)
[2020-06-21] MEDS: CHOLECALCIFEROL (VIT D3) 2,000 UNITS [50 MCG] TABLET PO SCH (09:11)
[2020-06-21] MEDS: CYCLOBENZAPRINE HCL 10 MG TABLET PO SCH ×2 (09:11→17:33)
[2020-06-21] MEDS: DOCUSATE SODIUM 250 MG CAPSULE PO SCH (09:12)
[2020-06-21] MEDS: FUROSEMIDE 40 MG/4 ML VIAL IVP SCH ×2 (09:12→21:10)
[2020-06-21] MEDS: CLOPIDOGREL BISULFATE 75 MG TABLET PO SCH (09:12)
[2020-06-21] MEDS: BusPIRone HCL 5 MG TABLET PO SCH ×2 (09:12→21:09)
[2020-06-21] MEDS: EPOETIN ALFA 10,000 UNITS/ML VIAL SQ SCH (09:12)
[2020-06-21] MEDS: MICONAZOLE NITRATE 2% 142 GM CREAM [BAZA] TP SCH ×2 (09:13→22:33)
[2020-06-21] MEDS: LIDOCAINE 5% TRANSDERMAL PATCH TD SCH (09:13)
[2020-06-21] MEDS: POTASSIUM CHLORIDE 20 MEQ ER TABLET PO SCH (09:38)
[2020-06-21] MEDS ORDERED: POTASSIUM CHLORIDE 20 MEQ ER TABLET PO ONE (10:30)
[2020-06-21] MEDS ORDERED: ZOLPIDEM TARTRATE 5 MG TABLET PO PRN (10:45)
[2020-06-21] MEDS ORDERED: MORPHINE SULFATE 2 MG/ML SYRINGE IVP PRN (10:45)
[2020-06-21 11:22] VITALS: BP 105/65
[2020-06-21 11:47] LABS: GLUCOMETER DEV NAME(LOC) 5S.2A; GLUCOSE,POINT OF CARE 127 MG/DL (70-110)
[2020-06-21 15:17] VITALS: BP 121/62
[2020-06-21] MEDS: MORPHINE SULFATE 2 MG/ML SYRINGE IVP PRN (17:59)
[2020-06-21 19:49] VITALS: BP 119/60
[2020-06-21] MEDS: INSULIN GLARGINE,HUM.REC.ANLOG 100 UNITS/ML SQ SCH (21:19)
[2020-06-21 21:23] LABS: GLUCOMETER DEV NAME(LOC) 5N.3; GLUCOSE,POINT OF CARE 119 MG/DL (70-110)
[2020-06-21] MEDS: -LIDODERM PATCH NOTE- MISC SCH (21:54)
[2020-06-22] VITALS (7 sets, daily range): BP systolic 113–149; BP diastolic 52–81
[2020-06-22 00:01] LABS: GLUCOMETER DEV NAME(LOC) 5S.1; GLUCOSE,POINT OF CARE 141 MG/DL (70-110)
[2020-06-22] MEDS: CYCLOBENZAPRINE HCL 10 MG TABLET PO SCH ×3 (00:36→16:27)
[2020-06-22] MEDS: MORPHINE SULFATE 2 MG/ML SYRINGE IVP PRN ×3 (00:44→16:46)
[2020-06-22] MEDS: AMPICILLIN SODIUM 2 GM/NS 100 ML IV SCH ×6 (02:40→21:23)
[2020-06-22] MEDS: ALBUTEROL SULFATE 2.5 MG/0.5 ML NEB SOLUTION NEB SCH ×4 (02:42→19:24)
[2020-06-22] MEDS: IPRATROPIUM BROMIDE 0.5 MG/2.5 ML NEB SOLUTION NEB SCH ×4 (02:42→19:24)
[2020-06-22 06:43] LABS: EOSINOPHILS % (AUTO) 4.8 % (1.0-6.0); HEMATOCRIT 23.7 % (36-46); HEMOGLOBIN 7.5 g/dL (12.0-16.0); LYMPHOCYTES # (AUTO) 0.9 K/uL (1.0-4.8); LYMPHOCYTES % (AUTO) 10.9 % (22.0-44.0); MEAN CORPUSCULAR HEMOGLOBIN 25.8 pg (26.0-34.0); MEAN CORPUSCULAR HGB CONC 31.6 G/dL (31.0-37.0); MEAN CORPUSCULAR VOLUME 82 fL (80-100); MONOCYTES # (AUTO) 0.9 K/uL (0.1-1.0); MONOCYTES % (AUTO) 10.7 % (2.0-9.0); NEUTROPHILS # (AUTO) 5.8 K/uL (1.8-7.7); NEUTROPHILS % (AUTO) 72.6 % (40.0-70.0); PLATELET COUNT (AUTO) 305 K/uL (150-450); RED BLOOD CELL COUNT(AUTO) 2.91 MIL/uL (4.00-5.20); RED CELL DISTRIBUTION WIDTH 19.8 % (11.5-14.5)
[2020-06-22 06:54] LABS: CALCIUM, TOTAL 8.9 mg/dL (8.8-10.5); CREATININE 1.82 mg/dL (0.60-1.30); POTASSIUM 3.5 mmol/L (3.5-5.1)
[2020-06-22] MEDS: LOSARTAN POTASSIUM 50 MG TABLET PO SCH ×2 (08:28→21:03)
[2020-06-22] MEDS: FERROUS SULFATE 325 MG EC TABLET PO SCH (08:28)
[2020-06-22] MEDS: MetFORMIN HCL 500 MG TABLET PO SCH ×2 (08:28→17:49)
[2020-06-22] MEDS: POTASSIUM CHLORIDE 20 MEQ ER TABLET PO SCH (08:28)
[2020-06-22] MEDS: MULTIVITAMINS WITH MINERALS, THERAPEUTIC TABLET PO SCH (08:28)
[2020-06-22] MEDS: CARVEDILOL 25 MG TABLET PO SCH ×2 (08:29→21:03)
[2020-06-22] MEDS: AmLODIPine BESYLATE 10 MG TABLET PO SCH (08:29)
[2020-06-22] MEDS: LIDOCAINE 5% TRANSDERMAL PATCH TD SCH (08:29)
[2020-06-22] MEDS: PANTOPRAZOLE SODIUM 40 MG DR TABLET PO SCH (08:29)
[2020-06-22] MEDS: ASPIRIN 81 MG CHEWABLE TABLET PO SCH (08:29)
[2020-06-22] MEDS: CHOLECALCIFEROL (VIT D3) 2,000 UNITS [50 MCG] TABLET PO SCH (08:29)
[2020-06-22] MEDS: ATORVASTATIN CALCIUM 40 MG TABLET PO SCH (08:29)
[2020-06-22] MEDS: ALLOPURINOL 100 MG TABLET PO SCH (08:30)
[2020-06-22] MEDS: PRAMIPEXOLE DI-HCL 0.25 MG TABLET PO SCH (08:30)
[2020-06-22] MEDS: ESCITALOPRAM OXALATE 20 MG TABLET PO SCH (08:30)
[2020-06-22] MEDS: BusPIRone HCL 5 MG TABLET PO SCH ×2 (08:30→21:03)
[2020-06-22] MEDS: DOCUSATE SODIUM 250 MG CAPSULE PO SCH (08:35)
[2020-06-22] MEDS: MICONAZOLE NITRATE 2% 142 GM CREAM [BAZA] TP SCH ×2 (08:36→21:05)
[2020-06-22] MEDS: FUROSEMIDE 40 MG/4 ML VIAL IVP SCH ×2 (08:36→21:03)
[2020-06-22 10:05] LABS: GLUCOMETER DEV NAME(LOC) 5S.1; GLUCOSE,POINT OF CARE 121 MG/DL (70-110)
[2020-06-22] MEDS: LEVOFLOXACIN 500 MG TABLET PO SCH (11:56)
[2020-06-22] MEDS: OxyCODONE HCL 5 MG IR TABLET PO PRN ×2 (11:56→21:23)
[2020-06-22 12:21] LABS: GLUCOMETER DEV NAME(LOC) 5S.1; GLUCOSE,POINT OF CARE 130 MG/DL (70-110)
[2020-06-22 17:19] LABS: GLUCOMETER DEV NAME(LOC) 5S.1; GLUCOSE,POINT OF CARE 147 MG/DL (70-110)
[2020-06-22] MEDS: INSULIN GLARGINE,HUM.REC.ANLOG 100 UNITS/ML SQ SCH (21:09)
[2020-06-22] MEDS ORDERED: SODIUM CHLORIDE 0.9% 100 ML ONE (21:22)
[2020-06-22] MEDS: -LIDODERM PATCH NOTE- MISC SCH (21:23)
[2020-06-23] MEDS: CYCLOBENZAPRINE HCL 10 MG TABLET PO SCH ×4 (00:53→23:38)
[2020-06-23] MEDS: ALBUTEROL SULFATE 2.5 MG/0.5 ML NEB SOLUTION NEB SCH ×4 (02:27→19:52)
[2020-06-23] MEDS: IPRATROPIUM BROMIDE 0.5 MG/2.5 ML NEB SOLUTION NEB SCH ×4 (02:27→19:52)
[2020-06-23] MEDS: AMPICILLIN SODIUM 2 GM/NS 100 ML IV SCH ×6 (02:41→21:24)
[2020-06-23 05:21] VITALS: BP 116/57
[2020-06-23 07:09] LABS: BASOPHILS % (AUTO) 0.9 % (0.0-2.0); EOSINOPHILS % (AUTO) 6.9 % (1.0-6.0); HEMATOCRIT 22.5 % (36-46); HEMOGLOBIN 7.1 g/dL (12.0-16.0); LYMPHOCYTES # (AUTO) 1.2 K/uL (1.0-4.8); LYMPHOCYTES % (AUTO) 14.1 % (22.0-44.0); MEAN CORPUSCULAR HEMOGLOBIN 25.4 pg (26.0-34.0); MEAN CORPUSCULAR HGB CONC 31.7 G/dL (31.0-37.0); MEAN CORPUSCULAR VOLUME 80 fL (80-100); MONOCYTES # (AUTO) 0.7 K/uL (0.1-1.0); MONOCYTES % (AUTO) 9.1 % (2.0-9.0); NEUTROPHILS # (AUTO) 5.6 K/uL (1.8-7.7); PLATELET COUNT (AUTO) 283 K/uL (150-450); RED BLOOD CELL COUNT(AUTO) 2.81 MIL/uL (4.00-5.20); RED CELL DISTRIBUTION WIDTH 20.4 % (11.5-14.5)
[2020-06-23 07:16] LABS: CALCIUM, TOTAL 8.1 mg/dL (8.8-10.5); CREATININE 1.61 mg/dL (0.60-1.30); POTASSIUM 3.4 mmol/L (3.5-5.1)
[2020-06-23 07:20] LABS: INR 1.2 (0.9-1.1)
[2020-06-23 07:29] LABS: GLUCOMETER DEV NAME(LOC) 5S.1; GLUCOSE,POINT OF CARE 136 MG/DL (70-110)
[2020-06-23 07:29] LABS: GLUCOMETER DEV NAME(LOC) 5S.2A; GLUCOSE,POINT OF CARE 126 MG/DL (70-110)
[2020-06-23 07:55] VITALS: BP 124/60
[2020-06-23] MEDS: LIDOCAINE 5% TRANSDERMAL PATCH TD SCH (09:00)
[2020-06-23] MEDS: CHOLECALCIFEROL (VIT D3) 2,000 UNITS [50 MCG] TABLET PO SCH (09:01)
[2020-06-23] MEDS: FUROSEMIDE 40 MG/4 ML VIAL IVP SCH ×2 (09:01→20:55)
[2020-06-23] MEDS: ATORVASTATIN CALCIUM 40 MG TABLET PO SCH (09:02)
[2020-06-23] MEDS: CARVEDILOL 25 MG TABLET PO SCH ×2 (09:02→20:55)
[2020-06-23] MEDS: POTASSIUM CHLORIDE 20 MEQ ER TABLET PO SCH (09:02)
[2020-06-23] MEDS: DOCUSATE SODIUM 250 MG CAPSULE PO SCH (09:02)
[2020-06-23] MEDS: PANTOPRAZOLE SODIUM 40 MG DR TABLET PO SCH (09:02)
[2020-06-23] MEDS: ESCITALOPRAM OXALATE 20 MG TABLET PO SCH (09:03)
[2020-06-23] MEDS: FERROUS SULFATE 325 MG EC TABLET PO SCH (09:03)
[2020-06-23] MEDS: ALLOPURINOL 100 MG TABLET PO SCH (09:03)
[2020-06-23] MEDS: MULTIVITAMINS WITH MINERALS, THERAPEUTIC TABLET PO SCH (09:03)
[2020-06-23] MEDS: BusPIRone HCL 5 MG TABLET PO SCH ×2 (09:06→20:55)
[2020-06-23] MEDS: EPOETIN ALFA 10,000 UNITS/ML VIAL SQ SCH (09:14)
[2020-06-23] MEDS: PRAMIPEXOLE DI-HCL 0.25 MG TABLET PO SCH (09:19)
[2020-06-23] MEDS: MICONAZOLE NITRATE 2% 142 GM CREAM [BAZA] TP SCH ×2 (09:22→20:58)
[2020-06-23 11:19] LABS: GLUCOMETER DEV NAME(LOC) 5S.1; GLUCOSE,POINT OF CARE 119 MG/DL (70-110)
[2020-06-23 11:23] VITALS: BP 132/61
[2020-06-23] MEDS ORDERED: SODIUM CHLORIDE 0.9% 250 ML IV ONE (11:32)
[2020-06-23] MEDS: LOSARTAN POTASSIUM 50 MG TABLET PO SCH ×2 (11:41→20:55)
[2020-06-23] MEDS: AmLODIPine BESYLATE 10 MG TABLET PO SCH (11:41)
[2020-06-23 15:54] VITALS: BP 128/58
[2020-06-23 19:32] LABS: GLUCOMETER DEV NAME(LOC) 5S.1; GLUCOSE,POINT OF CARE 133 MG/DL (70-110)
[2020-06-23 20:39] VITALS: BP 110/72
[2020-06-23] MEDS: -LIDODERM PATCH NOTE- MISC SCH (20:58)
[2020-06-23] MEDS: INSULIN GLARGINE,HUM.REC.ANLOG 100 UNITS/ML SQ SCH (21:01)
[2020-06-24] VITALS (7 sets, daily range): BP systolic 116–129; BP diastolic 51–69
[2020-06-24] MEDS: AMPICILLIN SODIUM 2 GM/NS 100 ML IV SCH ×6 (01:35→22:03)
[2020-06-24] MEDS: IPRATROPIUM BROMIDE 0.5 MG/2.5 ML NEB SOLUTION NEB SCH ×4 (02:03→19:29)
[2020-06-24] MEDS: ALBUTEROL SULFATE 2.5 MG/0.5 ML NEB SOLUTION NEB SCH ×4 (02:03→19:29)
[2020-06-24 05:32] LABS: INR 1.2 (0.9-1.1); PROTHROMBIN TIME 12.7 SEC (9.4-11.6)
[2020-06-24] MEDS: INSULIN LISPRO 100 UNITS/ML SQ PRN ×3 (06:15→21:17)
[2020-06-24] MEDS: PANTOPRAZOLE SODIUM 40 MG DR TABLET PO SCH (08:35)
[2020-06-24] MEDS: FUROSEMIDE 40 MG/4 ML VIAL IVP SCH ×2 (08:35→21:10)
[2020-06-24] MEDS: MULTIVITAMINS WITH MINERALS, THERAPEUTIC TABLET PO SCH (08:35)
[2020-06-24] MEDS: LOSARTAN POTASSIUM 50 MG TABLET PO SCH ×2 (08:35→21:11)
[2020-06-24] MEDS: FERROUS SULFATE 325 MG EC TABLET PO SCH (08:36)
[2020-06-24] MEDS: CYCLOBENZAPRINE HCL 10 MG TABLET PO SCH ×2 (08:36→17:43)
[2020-06-24] MEDS: AmLODIPine BESYLATE 10 MG TABLET PO SCH (08:36)
[2020-06-24] MEDS: POTASSIUM CHLORIDE 20 MEQ ER TABLET PO SCH (08:36)
[2020-06-24] MEDS: ATORVASTATIN CALCIUM 40 MG TABLET PO SCH (08:36)
[2020-06-24] MEDS: ESCITALOPRAM OXALATE 20 MG TABLET PO SCH (08:37)
[2020-06-24] MEDS: CHOLECALCIFEROL (VIT D3) 2,000 UNITS [50 MCG] TABLET PO SCH (08:37)
[2020-06-24] MEDS: BusPIRone HCL 5 MG TABLET PO SCH ×2 (08:37→21:10)
[2020-06-24] MEDS: ALLOPURINOL 100 MG TABLET PO SCH (08:38)
[2020-06-24] MEDS: MICONAZOLE NITRATE 2% 142 GM CREAM [BAZA] TP SCH ×2 (08:39→21:13)
[2020-06-24] MEDS: PRAMIPEXOLE DI-HCL 0.25 MG TABLET PO SCH (08:40)
[2020-06-24] MEDS: DOCUSATE SODIUM 250 MG CAPSULE PO SCH (08:41)
[2020-06-24] MEDS: LIDOCAINE 5% TRANSDERMAL PATCH TD SCH (08:42)
[2020-06-24] MEDS: CARVEDILOL 25 MG TABLET PO SCH ×2 (12:00→21:11)
[2020-06-24] MEDS: MORPHINE SULFATE 2 MG/ML SYRINGE IVP PRN (13:55)
[2020-06-24 16:51] LABS: GLUCOMETER DEV NAME(LOC) 5S.1; GLUCOSE,POINT OF CARE 152 MG/DL (70-110)
[2020-06-24 16:51] LABS: GLUCOMETER DEV NAME(LOC) 5S.1; GLUCOSE,POINT OF CARE 154 MG/DL (70-110)
[2020-06-24 16:52] LABS: GLUCOMETER DEV NAME(LOC) 5S.1; GLUCOSE,POINT OF CARE 148 MG/DL (70-110)
[2020-06-24 18:55] LABS: GLUCOMETER DEV NAME(LOC) 5S.1; GLUCOSE,POINT OF CARE 130 MG/DL (70-110)
[2020-06-24] MEDS: INSULIN GLARGINE,HUM.REC.ANLOG 100 UNITS/ML SQ SCH (21:17)
[2020-06-24] MEDS: -LIDODERM PATCH NOTE- MISC SCH (21:30)
[2020-06-25] MEDS: CYCLOBENZAPRINE HCL 10 MG TABLET PO SCH ×2 (00:23→09:01)
[2020-06-25] MEDS: ALBUTEROL SULFATE 2.5 MG/0.5 ML NEB SOLUTION NEB SCH ×3 (02:02→15:51)
[2020-06-25] MEDS: IPRATROPIUM BROMIDE 0.5 MG/2.5 ML NEB SOLUTION NEB SCH ×3 (02:02→15:51)
[2020-06-25] MEDS: AMPICILLIN SODIUM 2 GM/NS 100 ML IV SCH ×4 (02:15→13:42)
[2020-06-25 05:40] VITALS: BP 124/57
[2020-06-25 07:07] LABS: GLUCOMETER DEV NAME(LOC) 5S.1; GLUCOSE,POINT OF CARE 153 MG/DL (70-110)
[2020-06-25 07:07] LABS: GLUCOMETER DEV NAME(LOC) 5S.1; GLUCOSE,POINT OF CARE 121 MG/DL (70-110)
[2020-06-25 07:45] VITALS: BP 123/73
[2020-06-25] MEDS: FERROUS SULFATE 325 MG EC TABLET PO SCH (08:59)
[2020-06-25] MEDS: ESCITALOPRAM OXALATE 20 MG TABLET PO SCH (08:59)
[2020-06-25] MEDS: MULTIVITAMINS WITH MINERALS, THERAPEUTIC TABLET PO SCH (09:00)
[2020-06-25] MEDS: AmLODIPine BESYLATE 10 MG TABLET PO SCH (09:00)
[2020-06-25] MEDS: PANTOPRAZOLE SODIUM 40 MG DR TABLET PO SCH (09:00)
[2020-06-25] MEDS: CHOLECALCIFEROL (VIT D3) 2,000 UNITS [50 MCG] TABLET PO SCH (09:00)
[2020-06-25] MEDS ORDERED: CLOPIDOGREL BISULFATE 75 MG TABLET PO SCH (09:00)
[2020-06-25] MEDS: LOSARTAN POTASSIUM 50 MG TABLET PO SCH (09:00)
[2020-06-25] MEDS ORDERED: POTASSIUM CHLORIDE 20 MEQ ER TABLET PO SCH (09:00)
[2020-06-25] MEDS: DOCUSATE SODIUM 250 MG CAPSULE PO SCH (09:00)
[2020-06-25] MEDS: ATORVASTATIN CALCIUM 40 MG TABLET PO SCH (09:00)
[2020-06-25] MEDS: BusPIRone HCL 5 MG TABLET PO SCH (09:01)
[2020-06-25] MEDS: PRAMIPEXOLE DI-HCL 0.25 MG TABLET PO SCH (09:01)
[2020-06-25] MEDS: CARVEDILOL 25 MG TABLET PO SCH (09:02)
[2020-06-25] MEDS: LIDOCAINE 5% TRANSDERMAL PATCH TD SCH (09:02)
[2020-06-25] MEDS: ALLOPURINOL 100 MG TABLET PO SCH (09:02)
[2020-06-25] MEDS: FUROSEMIDE 40 MG/4 ML VIAL IVP SCH (09:03)
[2020-06-25] MEDS: MICONAZOLE NITRATE 2% 142 GM CREAM [BAZA] TP SCH (09:04)
[2020-06-25] MEDS: EPOETIN ALFA 10,000 UNITS/ML VIAL SQ SCH (09:05)
[2020-06-25 11:50] VITALS: BP 127/64
[2020-06-25] MEDS: ALBUTEROL SULFATE 2.5 MG/0.5 ML NEB SOLUTION NEB PRN (12:08)
[2020-06-25] MEDS: IPRATROPIUM BROMIDE 0.5 MG/2.5 ML NEB SOLUTION NEB PRN (12:08)
[2020-06-25] MEDS: MORPHINE SULFATE 2 MG/ML SYRINGE IVP PRN (13:41)
[2020-06-25 15:35] VITALS: BP 121/57
[2020-06-25] MEDS ORDERED: BUSP5TAB20 PO (15:56)
[2020-06-25] MEDS ORDERED: FURO40 IVP (15:58)
[2020-06-25] MEDS ORDERED: INSLAN SQ (15:58)
[2020-06-25] MEDS ORDERED: MICO57CR2 TP (15:59)
[2020-06-25] MEDS ORDERED: MULT-1239 PO (16:00)
[2020-06-25 16:45] LABS: GLUCOMETER DEV NAME(LOC) 5S.1; GLUCOSE,POINT OF CARE 172 MG/DL (70-110)
== END 2020-06-25 18:30 | DRG 291 ==
LOC: EDSEX 15:08 → EMS 15:08 → 5S 18:40 → 5N 21:36 → 5S 06-12 18:17
PROVIDERS: ADMIT Internal Medicine Geriatric Medicine; ATTEND Internal Medicine Geriatric Medicine
PROC: 0W9B3ZZ Drainage of Left Pleural Cavity, Percutaneous Approach (ICD-10-PCS; principal; 2020-06-18)
DX: I13.0 Hypertensive heart and chronic kidney disease with heart failure and stage 1 through stage 4 chronic kidney disease, or unspecified chronic kidney disease (principal); I50.43 Acute on chronic combined systolic (congestive) and diastolic (congestive) heart failure; J96.01 Acute respiratory failure with hypoxia; G93.40 Encephalopathy, unspecified; J91.8 Pleural effusion in other conditions classified elsewhere; M46.26 Osteomyelitis of vertebra, lumbar region; I25.10 Atherosclerotic heart disease of native coronary artery without angina pectoris; E11.22 Type 2 diabetes mellitus with diabetic chronic kidney disease; D64.9 Anemia, unspecified; M10.9 Gout, unspecified; N18.9 Chronic kidney disease, unspecified; G89.29 Other chronic pain; M46.46 Discitis, unspecified, lumbar region; Z95.1 Presence of aortocoronary bypass graft; Z20.828 Contact with and (suspected) exposure to other viral communicable diseases; R26.9 Unspecified abnormalities of gait and mobility; F41.1 Generalized anxiety disorder; E11.69 Type 2 diabetes mellitus with other specified complication; E87.6 Hypokalemia
CPT/HCPCS: 32555; 71250; 76604; 76942; 80074; 82465; 82945; 83036; 83605; 83615; 83735; 83986; 84145; 84157; 84439; 84443; 84550; 87015; 87040; 87070; 87086; 87101; 87205; 87206; 88108; 89051; 93005; 93306; 94640; 97110; 97162; 97167; 97530; 97535; 99291; G0378; J0290; J0696; J0885; J1815; J1940; J2270; J7050; 36415-L1; 36415-TC; 71045-TC; 80061-TC; 87635; J7613; U0003-CS